=== PATIENT | female | born 1955 | race Asian ===

== ENCOUNTER 2018-01-04 10:07 | Day surgery (SDC) | payer OTHER ==
[2018-01-01 14:24] VITALS: BMI 21.9
[2018-01-04] MEDS ORDERED: PROPOFOL 200 MG/20 ML VIAL ONE (11:38)
[2018-01-04] MEDS ORDERED: Lidocaine 1% PF 5 ML VIAL ONE (11:38)
--- NOTE | 2018-01-04 12:06 | OP ---
DATE OF PROCEDURE: 01/04/2018 TITLE OF PROCEDURE: Colonoscopy. PREPROCEDURE DIAGNOSIS: Average risk colon screening. POSTPROCEDURE DIAGNOSES: 1. Exam to distal terminal ileum, good bowel preparation. 2. Mildly tortuous colon. 3. Small internal hemorrhoids. 4. Otherwise normal colonoscopy. PROCEDURE IN DETAIL: Written informed consent was obtained. The patient was brought to the endoscop y suite. Total intravenous anesthesia was provided by Dr. Blackwell and associates. The patient was pl aced in the left lateral decubitus position. A digital rectal exam was performed that was unremarkab le. A Pentax video colonoscope was inserted through the anal canal and advanced under direct visuali zation to the distal terminal ileum. The quality of the bowel preparation was good. Each colon segm ent was examined carefully, as the colonoscope was slowly withdrawn from the cecum. Vascular pattern and haustral folds appeared normal. No diverticula, vascular ectasia, or polyp was identified. In the rectum, a retroflexed view demonstrated small internal hemorrhoids that were not bleeding. The c olon was decompressed as the colonoscope was completely withdrawn from the patient. She was transfer red to the day stay surgery area for post-procedure monitoring. There were no immediate complication s. RECOMMENDATIONS: 1. Continue or resume previous medications and previous diet. 2. Sitz baths t.i.d. p.r.n. hemorrhoids. 3. Repeat colonoscopy in 10 years. 4. Follow up with GI as needed.
== END 2018-01-04 12:49 | disposition home or self-care (01) ==
LOC: SDC 10:07
PROVIDERS: ATTEND Internal Medicine Gastroenterology
PROC: 0DJD8ZZ Inspection of Lower Intestinal Tract, Via Natural or Artificial Opening Endoscopic (ICD-10-PCS; principal; 2018-01-04)
DX: Z12.11 Encounter for screening for malignant neoplasm of colon (principal); Q43.8 Other specified congenital malformations of intestine; K64.8 Other hemorrhoids; Z88.0 Allergy status to penicillin
CPT/HCPCS: J2001; J2704

== ENCOUNTER 2018-01-29 15:17 | Outpatient (CLI) | payer OTHER | END 2018-01-29 15:18 | disposition home or self-care (01) | LOC: BICMAMMO 15:17 | PROVIDERS: ATTEND Internal Medicine | DX: Z12.31 Encounter for screening mammogram for malignant neoplasm of breast (principal) | CPT/HCPCS: 77063; 77067 ==

== ENCOUNTER 2018-06-22 13:37 | Outpatient (CLI) | payer OTHER ==
--- NOTE | 2018-06-22 16:11 | ULT ---
THYROID ULTRASOUND: 06/22/18 COMPARISON: None. HISTORY: Patient has been on thyroid medication for years with a newly palpable region in the left neck for tw o weeks. TECHNIQUE: Multiplanar long scale and color doppler images were obtained in a thyroid ultrasound. FINDINGS: There is a mixed solid/cystic lesion in the isthmus of the thyroid measuring 1.3 cm in greatest dimen rae. There is a well circumscribed hyperechoic lesion in the left lobe of the thyroid measuring 2.2 cm in greatest dimension. This is wider than tall without suspicious microcalcifications. The thyroid lobes measures 4.2 and 4.7 cm in length on the right and left, respectively. IMPRESSION: The lesion in the left lobe of the thyroid is a TIRADS category 3 lesion. A followup at one year, thr ee years and five years is recommended as this is greater than 1.5 cm in size per recent recommendati ons. POS: [facility]
== END 2018-06-22 13:38 | disposition home or self-care (01) ==
LOC: SCSULT 13:37
PROVIDERS: ATTEND Internal Medicine Endocrinology, Diabetes & Metabolism
DX: E05.91 Thyrotoxicosis, unspecified with thyrotoxic crisis or storm (principal); E07.9 Disorder of thyroid, unspecified
CPT/HCPCS: 76536

== ENCOUNTER 2019-02-02 11:14 | Outpatient (CLI) | payer OTHER ==
--- NOTE | 2019-02-02 12:00 | MMO ---
Bilateral MAMMO Bilat Screen [facility]. CLINICAL HISTORY: Patient is 63 years old and is seen for screening. The patient has no family history of breast cancer. The patient has no personal history of cancer. VIEWS: The views performed were: bilateral craniocaudal with tomosynthesis and bilateral mediolateral oblique with tomosynthesis. FILMS COMPARED: The present examination has been compared to a prior imaging study performed at [facility] on 01/29/2018. MAMMOGRAM FINDINGS: The breasts are heterogeneously dense, which could obscure a lesion on mammography. There are no suspicious masses, suspicious calcifications, or new areas of architectural distortion. IMPRESSION: THERE IS NO MAMMOGRAPHIC EVIDENCE OF MALIGNANCY. A ROUTINE FOLLOW-UP MAMMOGRAM IN 1 YEAR IS RECOMMENDED. THE RESULTS OF THIS EXAM WERE SENT TO THE PATIENT. ACR BI-RADS Category 1 - Negative MAMMOGRAPHY NOTE: 1. A negative mammogram report should not delay a biopsy if a dominant of clinically suspicious mass is present. 2. Approximately 10% to 15% of breast cancers are not detected by mammography. 3. Adenosis and dense breasts may obscure an underlying neoplasm.
== END 2019-02-02 11:15 | disposition home or self-care (01) ==
LOC: BICMAMMO 11:14
PROVIDERS: ATTEND Internal Medicine
DX: Z12.31 Encounter for screening mammogram for malignant neoplasm of breast (principal)
CPT/HCPCS: 77063; 77067

== ENCOUNTER 2020-02-07 13:46 | Outpatient (CLI) | payer OTHER ==
--- NOTE | 2020-02-07 14:30 | BD ---
BONE DENSITOMETRY USING DEXA: HISTORY: Postmenopausal screening for osteoporosis. FINDINGS: Lumbar Spine: BMD (g/cm2) L1 0.742 T-Score: -2.3 Z-Score: -0.8 L2 0.858 T-Score: -1.5 Z-Score: 0.1 L3 0.997 T-Score: -1.5 Z-Score: 0.2 L4 1.009 T-Score: -0.5 Z-Score: 1.3 L1-L4 0.889 T-Score: -1.4 Z-Score: 0.2 Femoral Neck: 0.578 T-Score: -2.4 Z-Score: 1.0 Total Femur: 0.759 T-Score: -1.5 Z-Score: -0.4 The 10-year fracture risk for a major osteoporotic fracture is 12% and for a hip fracture is 1.2%. Impression: Osteopenia. POS: [facility]
--- NOTE | 2020-02-07 14:31 | MMO ---
Bilateral MAMMO Bilat Screen [facility]. CLINICAL HISTORY: Patient is 64 years old and is seen for screening. The patient has no family history of breast cancer. The patient has no personal history of cancer. VIEWS: The views performed were: bilateral craniocaudal with tomosynthesis and bilateral mediolateral oblique with tomosynthesis. FILMS COMPARED: The present examination has been compared to prior imaging studies performed at [facility] on 05/16/2014 and 05/17/2015, and at [facility] on 01/29/2018 and 02/02/2019. This study has been interpreted with the assistance of computer-aided detection. MAMMOGRAM FINDINGS: The breasts are heterogeneously dense, which could obscure a lesion on mammography. There are no suspicious masses, suspicious calcifications, or new areas of architectural distortion. IMPRESSION: THERE IS NO MAMMOGRAPHIC EVIDENCE OF MALIGNANCY. A ROUTINE FOLLOW-UP MAMMOGRAM IN 1 YEAR IS RECOMMENDED. THE RESULTS OF THIS EXAM WERE SENT TO THE PATIENT. ACR BI-RADS Category 1 - Negative MAMMOGRAPHY NOTE: 1. A negative mammogram report should not delay a biopsy if a dominant of clinically suspicious mass is present. 2. Approximately 10% to 15% of breast cancers are not detected by mammography. 3. Adenosis and dense breasts may obscure an underlying neoplasm. Reported by: NUVIA LAWSON MD Electonically Signed: [id number]
== END 2020-02-07 13:47 | disposition home or self-care (01) ==
LOC: BICMAMMO 13:46
PROVIDERS: ATTEND Internal Medicine
DX: Z12.31 Encounter for screening mammogram for malignant neoplasm of breast (principal); Z13.820 Encounter for screening for osteoporosis; Z78.0 Asymptomatic menopausal state; M85.89 Other specified disorders of bone density and structure, multiple sites
CPT/HCPCS: 77063; 77067; 77080

== ENCOUNTER 2021-02-08 13:45 | Outpatient (CLI) | payer OTHER | END 2021-02-08 13:46 | disposition home or self-care (01) | LOC: BICMAMMO 13:45 | PROVIDERS: ATTEND Internal Medicine | DX: Z12.31 Encounter for screening mammogram for malignant neoplasm of breast (principal) | CPT/HCPCS: 77063; 77067 ==

== ENCOUNTER 2021-05-09 18:08 | Emergency (ER) | payer OTHER ==
[2021-05-09 19:33] LABS: HIV (1/2) Antibody/Antigen Non-Reactive (NonReactive); HIV 1/2 INDEX 0.06 S/CO (<1.00); Hep C IgG Ab Non-Reactive (NonReactive); Hep C Index 0.12 S/CO (0-0.79)
[2021-05-09 20:02] LABS: HBSAB Concentration 13.86 mIU/mL; Hep B Surf AB Reactive (NonReactive)
== END 2021-05-09 18:55 | disposition home or self-care (01) ==
LOC: ERS 18:08
DX: Z77.21 Contact with and (suspected) exposure to potentially hazardous body fluids (principal); I10 Essential (primary) hypertension; E05.90 Thyrotoxicosis, unspecified without thyrotoxic crisis or storm; Z79.899 Other long term (current) drug therapy
CPT/HCPCS: 86706; 86803; 87389; 99283

== ENCOUNTER 2022-05-13 13:18 | Outpatient (CLI) | payer MEDICARE | END 2022-05-13 13:19 | disposition home or self-care (01) | LOC: BICMAMMO 13:18 | PROVIDERS: ATTEND Internal Medicine | DX: Z12.31 Encounter for screening mammogram for malignant neoplasm of breast (principal) | CPT/HCPCS: 77063; 77067 ==

== ENCOUNTER 2023-08-05 13:07 | Outpatient (CLI) | payer MEDICARE, BC | END 2023-08-05 13:08 | disposition home or self-care (01) | LOC: SCSRAD 13:07 | PROVIDERS: ATTEND Internal Medicine Rheumatology | DX: E55.9 Vitamin D deficiency, unspecified (principal); I73.00 Raynaud's syndrome without gangrene; K75.9 Inflammatory liver disease, unspecified; M25.50 Pain in unspecified joint; M35.00 Sjogren syndrome, unspecified; M47.816 Spondylosis without myelopathy or radiculopathy, lumbar region | CPT/HCPCS: 72100 ==

== ENCOUNTER 2024-03-01 14:21 | Outpatient (CLI) | payer MEDICARE | END 2024-03-01 14:22 | disposition home or self-care (01) | LOC: BICMAMMO 14:21 | PROVIDERS: ATTEND Internal Medicine | DX: Z12.31 Encounter for screening mammogram for malignant neoplasm of breast (principal); Z13.820 Encounter for screening for osteoporosis; M81.0 Age-related osteoporosis without current pathological fracture; Z78.0 Asymptomatic menopausal state | CPT/HCPCS: 77063; 77067; 77080 ==